=== PATIENT | female | born 1995 | race African-American/Black ===

== ENCOUNTER 2022-02-22 22:10 | Inpatient (IN) | payer OTHER ==
[2022-02-22] MEDS ORDERED: SODIUM CHLORIDE 0.9% 1,000 ML IV STA (22:35)
[2022-02-22] MEDS ORDERED: ALBUTEROL NEBULIZED 2.5 MG/3 ML INHALATION STA (22:35)
[2022-02-22] MEDS ORDERED: IPRATROPIUM-ALBUTEROL 3 ML NEB INHALATION STA (22:37)
[2022-02-22] MEDS ORDERED: ACETAMINOPHEN TAB 500 MG TAB PO STA (23:06)
--- NOTE | 2022-02-22 23:08 | ED ---
SOB HPI - General Chief Complaint: Shortness of Breath Stated Complaint: asthma Time Seen by Provider: 02/22/22 22:20 Source: patient, RN notes reviewed Mode of arrival: wheelchair Limitations: no limitations - History of Present Illness Initial Comments: This is a pleasant 26-year-old female with a history of asthma. She presents to the emergency department complaining of shortness of breath, cough, runny nose which is progressive over the past 3 days. Patient also has had a fever. Patient denying any chest pain. She denies any abdominal pain. Denies chance of . Not exposed to anybody with COVID-19. No other ill individuals in the family. No headache, no fever or chills, no changes in vision or hearing, no sore throat or difficulty with speech, no neck pain, no chest pain, no abdominal pain, no nausea or vomiting, no changes in urination or bowel movements, no numbness or tingling, no extremity pain, no skin rashes or lesions. Past medical, surgical, social, and family history reviewed. Patient states she has had a clear runny nose. MD Complaint: shortness of breath - Related Data Allergies Allergy/AdvReac Type Severity Reaction Status Date / Time No Known Allergies Allergy Verified 02/22/22 22:15 Review of Systems ROS Statement: Those systems with pertinent positive or pertinent negative responses have been documented in the HPI. ROS Other: All systems not noted in ROS Statement are negative. Past Medical History Past Medical History: Asthma History of Any Multi-Drug Resistant Organisms: None Reported Additional Past Surgical History / Comment(s): Tumors removed from uterus Past Psychological History: No Psychological Hx Reported Smoking Status: Never smoker Past Alcohol Use History: None Reported Past Drug Use History: None Reported General Exam - General Exam Comments Initial Comments: Thin but healthy-appearing 26-year-old in moderate distress due to difficulty breathing. Vital signs noted. Limitations: no limitations General appearance: alert, in distress, other (Capillary refill less than 2 seconds. No modeling. Moist mucous membranes) Head exam: Present: atraumatic, normocephalic, normal inspection Eye exam: Present: normal appearance, PERRL, EOMI. Absent: scleral icterus, conjunctival injection, periorbital swelling ENT exam: Present: normal exam, normal oropharynx, mucous membranes moist, normal external ear exam, other (Mild clear nasal discharge). Absent: mucous membranes dry Neck exam: Present: normal inspection, full ROM. Absent: tenderness, meningismus, lymphadenopathy Respiratory exam: Present: respiratory distress, wheezes, accessory muscle use, decreased breath sounds, prolonged expiratory. Absent: rales, rhonchi, stridor, chest wall tenderness Cardiovascular Exam: Present: normal rhythm, tachycardia, normal heart sounds. Absent: systolic murmur, diastolic murmur, rubs, gallop, clicks GI/Abdominal exam: Present: soft, normal bowel sounds. Absent: distended, tenderness, guarding, rebound, rigid Extremities exam: Present: normal inspection, full ROM, normal capillary refill. Absent: tenderness, pedal edema, joint swelling, calf tenderness Back exam: Present: normal inspection Neurological exam: Present: alert, oriented X3, CN II-XII intact, motor sensory deficit Psychiatric exam: Present: normal affect, normal mood Skin exam: Present: warm, dry, intact, normal color. Absent: rash Course Vital Signs 02/22/22 02/22/22 02/22/22 22:12 22:35 23:44 Temperature 100.7 F H Pulse Rate 138 H 124 H 108 H Respiratory 32 H Rate Blood Pressure 145/91 O2 Sat by Pulse 92 L Oximetry 02/22/22 02/23/22 02/23/22 23:55 00:09 00:25 Temperature 98.5 F Pulse Rate 113 H 137 H 125 H Respiratory Rate Blood Pressure O2 Sat by Pulse Oximetry 02/23/22 01:06 Temperature Pulse Rate 129 H Respiratory 30 H Rate Blood Pressure 129/92 O2 Sat by Pulse 97 Oximetry - Reevaluation(s) Reevaluation #1: 02/23/22 00:14 Patient reevaluated and relieves not improved at all. I did add on another DuoNeb treatment, terbutaline, and a magnesium infusion. We'll plan for admission and reevaluation. We'll consider BiPAP. She currently breathing abo ut 28/m with IV wheezes throughout. Reevaluation #2: 02/23/22 01:14 Patient reevaluated and seems to be somewhat improved after an additional DuoNeb treatment, magnesium, and terbutaline. Patient still has IV wheezes and is still requiring nasal oxygen to maintain a saturation in the 90s. COVID-19 testing was negative. Reevaluation #3: 02/23/22 01:33 ABG on 24% FiO2 after several breathing treatments reveals compensated respiratory alkalosis with hypoxemia pO2 of 75.6., PH 7.39, pCO2 26.7, bicarbonate 16.2, base excess -8.7 - Consultations Consultation #1: Attestation we'll place a call for the admitting physician. Consultation #2: [facility] Patient admitted to the group and pulmonology reconsult with. Medical Decision Making - Lab Data Result diagrams: 02/22/22 23:03 02/22/22 23:03 Lab Results 02/22/22 02/22/22 02/22/22 Range/Units 23:03 23:03 23:03 WBC 10.0 (3.8-10.6) k/uL RBC 4.63 (3.80-5.40) m/uL Hgb 14.0 (11.4-16.0) gm/dL Hct 44.0 (34.0-46.0) % MCV 94.9 (80.0-100.0) fL MCH 30.2 (25.0-35.0) pg MCHC 31.8 (31.0-37.0) g/dL RDW 12.5 (11.5-15.5) % Plt Count 291 (150-450) k/uL MPV 9.6 Neutrophils % 82 % Lymphocytes % 12 % Monocytes % 3 % Eosinophils % 1 % Basophils % 1 % Neutrophils # 8.2 H (1.3-7.7) k/uL Lymphocytes # 1.2 (1.0-4.8) k/uL Monocytes # 0.3 (0-1.0) k/uL Eosinophils # 0.1 (0-0.7) k/uL Basophils # 0.1 (0-0.2) k/uL PT 10.8 (9.0-12.0) sec INR 1.0 (<1.2) D-Dimer 0.31 (<0.60) mg/L FEU Sample Site ABG pH (7.35-7.45) ABG pCO2 (35-45) mmHg ABG pO2 (83-108) mmHg ABG HCO3 (21-25) mmol/L ABG Total CO2 (19-24) mmol/L ABG O2 Saturation (94-97) % ABG Base Excess mmol/L ABG Hematocrit (34.0-46.0) % Michael Test Hemoglobin (11.4-16.0) gm/dL FiO2 % Sodium 139 (137-145) mmol/L Potassium 3.7 (3.5-5.1) mmol/L Chloride 104 (98-107) mmol/L Carbon Dioxide 17 L (22-30) mmol/L Anion Gap 18 mmol/L BUN 7 (7-17) mg/dL Creatinine 0.61 (0.52-1.04) mg/dL Est GFR (CKD-EPI)AfAm >90 (>60 ml/min/1.73 sqM) Est GFR (CKD-EPI)NonAf >90 (>60 ml/min/1.73 sqM) Glucose 89 (74-99) mg/dL Plasma Lactic Acid Miky (0.7-2.0) mmol/L Calcium 9.7 (8.4-10.2) mg/dL Magnesium 1.8 (1.6-2.3) mg/dL Total Bilirubin 0.5 (0.2-1.3) mg/dL AST 28 (14-36) U/L ALT 14 (4-34) U/L Alkaline Phosphatase 84 (38-126) U/L Troponin I (0.000-0.034) ng/mL NT-Pro-B Natriuret Pep pg/mL Total Protein 8.2 (6.3-8.2) g/dL Albumin 4.9 (3.5-5.0) g/dL Coronavirus (PCR) (Not Detectd) 02/22/22 02/22/22 02/22/22 Range/Units 23:03 23:03 23:03 WBC (3.8-10.6) k/uL RBC (3.80-5.40) m/uL Hgb (11.4-16.0) gm/dL Hct (34.0-46.0) % MCV (80.0-100.0) fL MCH (25.0-35.0) pg MCHC (31.0-37.0) g/dL RDW (11.5-15.5) % Plt Count (150-450) k/uL MPV Neutrophils % % Lymphocytes % % Monocytes % % Eosinophils % % Basophils % % Neutrophils # (1.3-7.7) k/uL Lymphocytes # (1.0-4.8) k/uL Monocytes # (0-1.0) k/uL Eosinophils # (0-0.7) k/uL Basophils # (0-0.2) k/uL PT (9.0-12.0) sec INR (<1.2) D-Dimer (<0.60) mg/L FEU Sample Site ABG pH (7.35-7.45) ABG pCO2 (35-45) mmHg ABG pO2 (83-108) mmHg ABG HCO3 (21-25) mmol/L ABG Total CO2 (19-24) mmol/L ABG O2 Saturation (94-97) % ABG Base Excess mmol/L ABG Hematocrit (34.0-46.0) % Michael Test Hemoglobin (11.4-16.0) gm/dL FiO2 % Sodium (137-145) mmol/L Potassium (3.5-5.1) mmol/L Chloride (98-107) mmol/L Carbon Dioxide (22-30) mmol/L Anion Gap mmol/L BUN (7-17) mg/dL Creatinine (0.52-1.04) mg/dL Est GFR (CKD-EPI)AfAm (>60 ml/min/1.73 sqM) Est GFR (CKD-EPI)NonAf (>60 ml/min/1.73 sqM) Glucose (74-99) mg/dL Plasma Lactic Acid Miky 1.6 (0.7-2.0) mmol/L Calcium (8.4-10.2) mg/dL Magnesium (1.6-2.3) mg/dL Total Bilirubin (0.2-1.3) mg/dL AST (14-36) U/L ALT (4-34) U/L Alkaline Phosphatase (38-126) U/L Troponin I <0.012 (0.000-0.034) ng/mL NT-Pro-B Natriuret Pep 78 pg/mL Total Protein (6.3-8.2) g/dL Albumin (3.5-5.0) g/dL Coronavirus (PCR) (Not Detectd) 02/22/22 02/23/22 Range/Units 23:03 01:26 WBC (3.8-10.6) k/uL RBC (3.80-5.40) m/uL Hgb (11.4-16.0) gm/dL Hct (34.0-46.0) % MCV (80.0-100.0) fL MCH (25.0-35.0) pg MCHC (31.0-37.0) g/dL RDW (11.5-15.5) % Plt Count (150-450) k/uL MPV Neutrophils % % Lymphocytes % % Monocytes % % Eosinophils % % Basophils % % Neutrophils # (1.3-7.7) k/uL Lymphocytes # (1.0-4.8) k/uL Monocytes # (0-1.0) k/uL Eosinophils # (0-0.7) k/uL Basophils # (0-0.2) k/uL PT (9.0-12.0) sec INR (<1.2) D-Dimer (<0.60) mg/L FEU Sample Site Left Brachial ABG pH 7.39 (7.35-7.45) ABG pCO2 27 L (35-45) mmHg ABG pO2 76 L (83-108) mmHg ABG HCO3 16 L (21-25) mmol/L ABG Total CO2 17 L (19-24) mmol/L ABG O2 Saturation 95.8 (94-97) % ABG Base Excess -8.7 mmol/L ABG Hematocrit 41 (34.0-46.0) % Michael Test Yes Hemoglobin 13.3 (11.4-16.0) gm/dL FiO2 24 % Sodium (137-145) mmol/L Potassium (3.5-5.1) mmol/L Chloride (98-107) mmol/L Carbon Dioxide (22-30) mmol/L Anion Gap mmol/L BUN (7-17) mg/dL Creatinine (0.52-1.04) mg/dL Est GFR (CKD-EPI)AfAm (>60 ml/min/1.73 sqM) Est GFR (CKD-EPI)NonAf (>60 ml/min/1.73 sqM) Glucose (74-99) mg/dL Plasma Lactic Acid Miky (0.7-2.0) mmol/L Calcium (8.4-10.2) mg/dL Magnesium (1.6-2.3) mg/dL Total Bilirubin (0.2-1.3) mg/dL AST (14-36) U/L ALT (4-34) U/L Alkaline Phosphatase (38-126) U/L Troponin I (0.000-0.034) ng/mL NT-Pro-B Natriuret Pep pg/mL Total Protein (6.3-8.2) g/dL Albumin (3.5-5.0) g/dL Coronavirus (PCR) Not Detected (Not Detectd) - EKG Data EKG Comments: EKG done at 2224 and regular ED attending physician reveals sinus tachycardia with short NJ interval. Ventricular rate of 121. NJ interval 104 ms. Remainder the intervals are normal. Indeterminate axis with isoelectric lead 1. No evidence of ST elevation or ST depression. No acute respiratory otherwise. Minimal artifact. No comparison study Critical Care Time Critical Care Time: Yes Total Critical Care Time: 30 Critical Care Time: Multiple re-evaluations, acute asthma exacerbation with respiratory distress and hypoxemia into the mid 80s. Patient requires nasal oxygen to maintain a normal oxygen saturation. Reevaluation of patient. Multiple interventions. Evaluation of patient's response to treatment. Disposition Clinical Impression: Asthma exacerbation, Viral upper respiratory infection, Respiratory distress, Hypoxemia Disposition: ADMITTED IP TO THIS HOSP Condition: Poor Is patient prescribed a controlled substance at d/c from ED?: No Referrals: None,Stated [Primary Care Provider] - 1-2 days Decision to Admit Reason: Admit from EC Decision Time: 00:16
--- NOTE | 2022-02-22 23:26 | XR ---
EXAMINATION TYPE: XR chest 1V portable DATE OF EXAM: 02/22/2022 COMPARISON: NONE HISTORY: Cough TECHNIQUE: Single view FINDINGS: Heart and mediastinum are normal. Lungs are clear. Diaphragm is normal. Bony thorax is inta ct. IMPRESSION: Normal chest.
[2022-02-22 23:32] LABS: Basophils # (A) 0.1 k/uL (0-0.2); Basophils % (A) 1 %; Eosinophils # (A) 0.1 k/uL (0-0.7); Eosinophils % (A) 1 %; Lymphocytes # (A) 1.2 k/uL (1.0-4.8); Lymphocytes % (A) 12 %; MCH 30.2 pg (25.0-35.0); MCHC 31.8 g/dL (31.0-37.0); MCV 94.9 fL (80.0-100.0); Mean Platelet Volume 9.6; Monocytes # (A) 0.3 k/uL (0-1.0); Monocytes % (A) 3 %; Neutrophils # (A) 8.2 k/uL (1.3-7.7); Neutrophils % (A) 82 %; Platelet Count 291 k/uL (150-450); RBC 4.63 m/uL (3.80-5.40); RDW 12.5 % (11.5-15.5)
[2022-02-22 23:51] LABS: ALT 14 U/L (4-34); AST 28 U/L (14-36); African American GFR (CKD) >90 (>60 ml/min/1.73 sqM); Albumin 4.9 g/dL (3.5-5.0); Alkaline Phosphatase 84 U/L (38-126); Anion Gap 18 mmol/L; Blood Urea Nitrogen 7 mg/dL (7-17); Calcium 9.7 mg/dL (8.4-10.2); Carbon Dioxide 17 mmol/L (22-30); Chloride 104 mmol/L (98-107); Glucose 89 mg/dL (74-99); Magnesium 1.8 mg/dL (1.6-2.3); Non-African American GFR(CKD) >90 (>60 ml/min/1.73 sqM); Potassium 3.7 mmol/L (3.5-5.1); Sodium 139 mmol/L (137-145); Total Bilirubin 0.5 mg/dL (0.2-1.3); Total Protein 8.2 g/dL (6.3-8.2)
[2022-02-23] MEDS ORDERED: MAGNESIUM SULFATE-D5W PMX 1 GM in DEXTROSE/WATER 1 100ML.BAG IVPB ONE (00:09)
[2022-02-23] MEDS ORDERED: TERBUTALINE 1 MG/ML VIAL SQ STA (00:09)
[2022-02-23] MEDS ORDERED: IPRATROPIUM-ALBUTEROL 3 ML NEB INHALATION STA (00:12)
[2022-02-23 00:14] LABS: Prothrombin Time 10.8 sec (9.0-12.0)
[2022-02-23] MEDS ORDERED: ACETAMINOPHEN TAB 325 MG TAB PO PRN (01:20)
[2022-02-23] MEDS ORDERED: NALOXONE 0.4 MG/ML 1 ML VIAL IVP PRN (01:20)
[2022-02-23] MEDS ORDERED: ALBUTEROL NEBULIZED 2.5 MG/3 ML INHALATION PRN (01:24)
[2022-02-23] MEDS ORDERED: NALOXONE 0.4 MG/ML 1 ML VIAL IV PRN (01:25)
[2022-02-23] MEDS ORDERED: ONDANSETRON 4 MG/2 ML VIAL IVP PRN (01:25)
[2022-02-23 01:28] LABS: ABG Base Excess -8.7 mmol/L; ABG HCO3 16 mmol/L (21-25); ABG Hematocrit 41 % (34.0-46.0); ABG Oxygen Saturation 95.8 % (94-97); ABG PCO2 27 mmHg (35-45); ABG PH 7.39 (7.35-7.45); ABG PO2 76 mmHg (83-108); ABG TCO2 17 mmol/L (19-24); Allen Test Performed? Yes
[2022-02-23] MEDS ORDERED: ALBUTEROL NEB (CONC) 2.5 MG/0.5 ML INHALATION STA (01:38)
[2022-02-23] MEDS: IPRATROPIUM-ALBUTEROL 3 ML NEB INHALATION SCH ×6 (03:46→23:56)
[2022-02-23] MEDS: guaiFENesin-DM 100-10MG/5ML 10 ML CUP PO PRN ×3 (05:40→18:48)
[2022-02-23 06:05] LABS: Appearance,Urine Clear (Clear); Bacteria,Urine Rare /hpf; Bilirubin,Urine Negative (Negative); Blood,Urine Moderate (Negative); Color,Urine Light Yellow; Glucose,Urine (UA) Negative (Negative); Ketones,Urine 2+ (Negative); Leukocyte Esterase,Urine Negative (Negative); Mucus,Urine Occasional /hpf; Nitrite,Urine Negative (Negative); Protein,Urine Negative (Negative); RBC,Urine <1 /hpf (0-5); Squamous Epithelial Cell,Urine <1 /hpf (0-4); Urobilinogen,Urine <2.0 mg/dL (<2.0); WBC,Urine 1 /hpf (0-5)
[2022-02-23] MEDS ORDERED: methylPREDNISolone SOD SUCCI 125 MG/2 ML VIAL IV SCH (08:00)
[2022-02-23] MEDS: FLUTICASONE 220 MCG INHALER INHALATION SCH ×2 (08:07→20:15)
[2022-02-23] MEDS: HEPARIN SODIUM,PORCINE/PF 5,000 UNIT/0.5 ML SYRINGE SQ SCH ×2 (09:40→18:47)
[2022-02-23] MEDS ORDERED: AZITHROMYCIN 500 MG TAB PO STA (09:55)
[2022-02-23] MEDS ORDERED: PROMETHAZINE 25 MG TAB PO PRN (09:56)
--- NOTE | 2022-02-23 09:57 | P.HPIM ---
History of Present Illness This is a pleasant 26 years old female with past medical history of asthma Patient presents because of dyspnea and coughing over 4-5 days, as per patient it was started as sore throat and runny nose, then developed into dyspnea, also she is getting support her parents report called at times. This a day she vomited more than 3 times and there was no blood in it. Also she is coughing some little brown phlegm. No chest pain, no diarrhea or vomiting or abdominal pain, actually she is constipated. No urinary symptoms like dysuria or urgency. No headache or dizziness, no weakness or numbness. Denies smoking, alcohol or drugs Patient states that this is a 10-12 time admitted to the hospital for similar complaint over the last year, usually goes to [facility] in [place] or [facility] about she moved recently with her boyfriend. Currently they have 2 pets 1 lungs to her and wants to her boyfriend. HCG in the serum is not detected Patient was counseled to avoid pets if possible at that may contribute to asthma exacerbation She is saturating 99% on 2 L oxygen nasal cannula, she is tachypneic and tachycardic heart rate 111-130 and respiratory rate 24. Patient is low-grade fever 100.7 showing unremarkable CBC, INR, BMP and liver enzymes are troponin. Urine analysis showing 2+ ketones. Coronavirus, influenza virus are negative. Chest x-ray: In the emergency room patient was started on steroids and IV fluid Review of Systems Review of systems CONSTITUTIONAL: No fever, no malaise, no fatigue. HEENT: No recent visual problems or hearing problems. Denied any sore throat. CARDIOVASCULAR: No orthopnea, PND, no palpitations, no syncope. PULMONARY: No chest wall tenderness, no hemoptysis. GASTROINTESTINAL: No diarrhea, no nausea, no vomiting, no abdominal pain. Norm oactive bowel sounds. NEUROLOGICAL: No headaches, no weakness, no numbness. HEMATOLOGICAL: Denies any bleeding or petechiae. GENITOURINARY: Denies any burning micturition, frequency, or urgency. MUSCULOSKELETAL/RHEUMATOLOGICAL: Denies any joint pain, swelling, or any muscle pain. ENDOCRINE: Denies any polyuria or polydipsia. Past Medical History Past Medical History: Asthma History of Any Multi-Drug Resistant Organisms: None Reported Additional Past Surgical History / Comment(s): Tumors removed from uterus Past Psychological History: No Psychological Hx Reported Smoking Status: Never smoker Past Alcohol Use History: None Reported Past Drug Use History: None Reported Medications and Allergies Home Medications Medication Instructions Recorded Confirmed Type No Known Home Medications 02/23/22 02/23/22 History Allergies Allergy/AdvReac Type Severity Reaction Status Date / Time No Known Allergies Allergy Verified 02/23/22 08:20 Physical Exam Vitals: Vital Signs Temp Pulse Pulse Resp BP BP Pulse Ox 02/23/22 04:01 111 H 02/23/22 03:49 130 H 02/23/22 03:20 99 F 122 H 24 119/83 99 02/23/22 02:22 125 H 02/23/22 02:10 140 H 02/23/22 01:58 132 H 02/23/22 01:06 129 H 30 H 129/92 97 02/23/22 00:25 98.5 F 125 H 02/23/22 00:09 137 H 02/22/22 23:55 113 H 02/22/22 23:44 108 H 02/22/22 22:35 124 H 02/22/22 22:12 100.7 F H 138 H 32 H 145/91 92 L Intake and Output 02/22/22 02/22/22 02/23/22 14:59 22:59 06:59 Other: Voiding Method Toilet # Voids 1 Weight 58.967 kg 58.967 kg GENERAL: The patient is alert and oriented x3, not in any acute distress. Well developed, well nourished. HEENT: Pupils are round and equally reacting to light. EOMI. No scleral icterus. No conjunctival pallor. Normocephalic, atraumatic. No pharyngeal erythema. No thyromegaly. CARDIOVASCULAR: S1 and S2 present. No murmurs, rubs, or gallops. -PULMONARY: Chest is clear to auscultation, no crackles. . Bilateral scattered wheezing ABDOMEN: Soft, nontender, nondistended, normoactive bowel sounds. No palpable organomegaly. MUSCULOSKELETAL: No joint swelling or deformity. EXTREMITIES: No cyanosis, clubbing, or pedal edema. NEUROLOGICAL: Gross neurological examination did not reveal any focal deficits. SKIN: No rashes. no petechiae. Results CBC & Chem 7: 02/22/22 23:03 02/22/22 23:03 Labs: Abnormal Lab Results - Last 24 Hours (Table) 02/22/22 02/22/22 02/23/22 Range/Units 23:03 23:03 01:26 Neutrophils # 8.2 H (1.3-7.7) k/uL ABG pCO2 27 L (35-45) mmHg ABG pO2 76 L (83-108) mmHg ABG HCO3 16 L (21-25) mmol/L ABG Total CO2 17 L (19-24) mmol/L Carbon Dioxide 17 L (22-30) mmol/L Assessment and Plan Assessment: Acute asthma exacerbation Acute tracheobronchitis Recurrent vomiting, most likely secondary to above with rotation Plan: This is a pleasant 26 years old female who presents with dyspnea fever Continue with IV Solu-Medrol Continue with a breathing treatment and oxygen as needed. Start the patient on Zithromax 5 days Pulmonary consult follow-up Labs and medication were reviewed.. Continue same treatment. Continue with symptomatic treatment. Resume home medication. Monitor lytes and vitals. DVT and GI prophylaxis. Further recommendations as per clinical course of the patient DVT prophylaxis: Subcutaneous heparin GI Prophylaxis: Pepcid
[2022-02-23] MEDS: methylPREDNISolone SOD SUCCI 125 MG/2 ML VIAL IV SCH ×2 (12:38→18:48)
--- NOTE | 2022-02-23 12:41 | P.CNPUL ---
History of Present Illness Consult date: 02/23/22 Reason for consult: dyspnea History of present illness: 26-year-old female patient, known history of childhood asthma, maintain on short-acting albuterol rescue inhaler, presented to the hospital because of an acute asthma attack, increased chest that is wheezing and shortness of breath. The patient was progressively getting worse and she end up in the hospital. Her last hospitalization was approximately year ago at [facility] in [facility]. The patient has no significant environmental ALLERGIES. She has 2 dogs and one cat in the house. She has her [id number] who also smokes in the house. The patient herself does not smoke. She's been exposed to secondhand cigarette smoke. No history of breathing. No history of marijuana use. The patient was infected with COVID 19 back in May 2021 and she recovered. She was also partially vaccinated for the COVID 19 virus The patient reports no aspiration. No recurrent bronchitis or pneumonia. Her labs showed a white cell count of 10 with a hemoglobin of 14, normal coagulation profile. Blood gases on 2 L of oxygen by nasal cannula showed a pH of 7.39 with a pCO2 of 27 and pO2 76. Electrolytes showed a component of anion gap metabolic acidosis with a gap of 18 and a serum bicarbonate was 17. Troponins were negative. UA was negative. Coreg 19 by PCR was negative. Influenza screen was negative. Chest x-ray shows no acute abnormalities other than hyperinflation. No frequent steroid use. No other maintenance inhalation therapy for asthma over the years. Review of Systems Constitutional: Denies chills, Denies fever Eyes: denies as per HPI, denies blurred vision, denies bulging eye, denies decreased vision, denies diplopia, denies discharge, denies dry eye, denies irritation, denies itching, denies pain, denies photophobia, denies loss of peripheral vision, denies loss of vision, denies tunnel vision/blind spots Ears: deny: decreased hearing, ear discharge, earache, tinnitus Ears, nose, mouth and throat: Reports as per HPI Breasts: absent: as per HPI, change in shape, gynecomastia, masses, nipple discharge, pain, skin changes, swelling Cardiovascular: Reports decreased exercise tolerance, Reports dyspnea on exertion Respiratory: Reports cough, Reports dyspnea, Reports wheezing Gastrointestinal: Reports as per HPI Genitourinary: Reports as per HPI Menstruation: Reports as per HPI Musculoskeletal: Reports as per HPI Musculoskeletal: absent: ankle pain, ankle stiffness, ankle swelling Integumentary: Reports as per HPI Neurological: Reports as per HPI Psychiatric: Reports as per HPI Endocrine: Reports as per HPI Hematologic/Lymphatic: Reports as per HPI Allergic/Immunologic: Reports as per HPI Past Medical History Past Medical History: Asthma Additional Past Medical History / Comment(s): Childhood asthma. Previous admission for asthma exac. Mar 2021, [facility]. COVID May 2021, judie rtially vaccinated (moderna x1). 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 Past Psychological History: No Psychological Hx Reported Smoking Status: Never smoker Past Alcohol Use History: None Reported Past Drug Use History: None Reported Medications and Allergies Home Medications Medication Instructions Recorded Confirmed Type No Known Home Medications 02/23/22 02/23/22 History Allergies Allergy/AdvReac Type Severity Reaction Status Date / Time No Known Allergies Allergy Verified 02/23/22 08:20 Physical Exam Vitals: Vital Signs Temp Pulse Pulse Resp BP BP Pulse Ox 02/23/22 09:48 101 H 02/23/22 08:08 120 H 02/23/22 08:00 120 H 18 02/23/22 07:58 99 02/23/22 07:54 107 H 02/23/22 07:38 98.5 F 103 H 18 115/77 98 02/23/22 04:30 99.4 F 113 H 23 114/79 98 02/23/22 04:01 111 H 02/23/22 03:49 130 H 02/23/22 03:20 99 F 122 H 24 119/83 99 02/23/22 02:22 125 H 02/23/22 02:10 140 H 02/23/22 01:58 132 H 02/23/22 01:06 129 H 30 H 129/92 97 02/23/22 00:25 98.5 F 125 H 02/23/22 00:09 137 H 02/22/22 23:55 113 H 02/22/22 23:44 108 H 02/22/22 22:35 124 H 02/22/22 22:12 100.7 F H 138 H 32 H 145/91 92 L Intake and Output 09/20/22 09/21/22 09/21/22 22:59 06:59 14:59 Other: Voiding Method Toilet Toilet # Voids 1 Weight 58.967 kg 58.967 kg Gen. appearance the patient is calm and comfortable and she is able to complete full sentences. She is or occasionally having coughing fits. Head exam was generally normal. There was no scleral icterus or corneal arcus. Mucous membranes were moist. Neck was supple and without jugular venous distension, thyromegaly, or carotid bruits. Carotids were easily palpable bilaterally. There was no adenopathy. Lungs sounds are diminished and the patient is diffuse expiratory wheezes throughout the lung his bilaterally Cardiac exam revealed the PMI to be normally situated and sized. The rhythm was regular and no extrasystoles were noted during several minutes of auscultation. The first and second heart sounds were normal and physiologic splitting of the second heart sound was noted. There were no murmurs, rubs, clicks, or gallops. Abdominal exam revealed normal bowel sounds. The abdomen was soft, non-tender, and without masses, organomegaly, or appreciable enlargement of the abdominal aorta. Examination of the extremities revealed easily palpable radial, femoral and pedal pulses. There was no cyanosis, clubbing or edema. Examination of the skin revealed no evidence of significant rashes, suspicious appearing nevi or other concerning lesions. Neurologically, the patient is awake and alert and the patient does not have any focal neurological deficit. Cranial nerves are essentially intact. Results - Laboratory Findings CBC and BMP: 02/22/22 23:03 02/22/22 23:03 ABG ABG pH 7.39 (7.35-7.45) 02/23/22 01:26 ABG pCO2 27 mmHg (35-45) L 02/23/22 01:26 ABG pO2 76 mmHg (83-108) L 02/23/22 01:26 ABG O2 Saturation 95.8 % (94-97) 02/23/22 01:26 PT/INR, D-dimer PT 10.8 sec (9.0-12.0) 02/22/22 23:03 INR 1.0 (<1.2) 02/22/22 23:03 D-Dimer 0.31 mg/L FEU (<0.60) 02/22/22 23:03 Abnormal lab findings: Abnormal Labs 02/22/22 02/22/22 02/23/22 23:03 23:03 01:26 Neutrophils # 8.2 H ABG pCO2 27 L ABG pO2 76 L ABG HCO3 16 L ABG Total CO2 17 L Carbon Dioxide 17 L Urine Ketones Urine Blood Urine Bacteria Urine Mucus 02/23/22 05:49 Neutrophils # ABG pCO2 ABG pO2 ABG HCO3 ABG Total CO2 Carbon Dioxide Urine Ketones 2+ H Urine Blood Moderate H Urine Bacteria Rare H Urine Mucus Occasional H - Diagnostic Findings Chest x-ray: image reviewed Assessment and Plan Plan: Acute exacerbation of chronic asthma, secondary shortness of breath chest tightness and wheeze. Blood gas shows acute respiratory alkalosis Anion gap metabolic acidosis, probably related to a mild component of lactic acidosis due to increased shortness of breath and increased work of breathing History of childhood bronchial asthma, likely nonallergic in nature COVID 19 infection May 2021 Plan Continue current treatment of DuoNeb nebulized treatment [id number] IV Solu Medrol 60 mg every 6 hours Continue empiric antibiotic coverage with Zithromax to 50 mg by mouth daily Outpatient workup for asthma phenotype/endotype in addition to morbid function tests All patient maintenance inhaled corticosteroids and this will be established the time of discharge We'll continue to follow
[2022-02-23] MEDS: FAMOTIDINE 20 MG/2 ML VIAL IV SCH (21:56)
[2022-02-24] MEDS: HEPARIN SODIUM,PORCINE/PF 5,000 UNIT/0.5 ML SYRINGE SQ SCH ×2 (00:28→09:33)
[2022-02-24] MEDS: methylPREDNISolone SOD SUCCI 125 MG/2 ML VIAL IV SCH ×2 (00:29→05:30)
[2022-02-24] MEDS: IPRATROPIUM-ALBUTEROL 3 ML NEB INHALATION SCH ×3 (04:02→11:18)
[2022-02-24] MEDS: FLUTICASONE 220 MCG INHALER INHALATION SCH (07:24)
[2022-02-24] MEDS ORDERED: AZITHROMYCIN 250 MG TAB PO SCH (09:00)
[2022-02-24 09:17] LABS: Basophils % (A) 0 %; Eosinophils % (A) 0 %; HCT 40.4 % (34.0-46.0); HGB 13.1 gm/dL (11.4-16.0); Lymphocytes # (A) 0.9 k/uL (1.0-4.8); Lymphocytes % (A) 7 %; MCH 30.9 pg (25.0-35.0); MCHC 32.3 g/dL (31.0-37.0); MCV 95.8 fL (80.0-100.0); Mean Platelet Volume 10.3; Monocytes # (A) 0.3 k/uL (0-1.0); Monocytes % (A) 3 %; Neutrophils # (A) 11.5 k/uL (1.3-7.7); Neutrophils % (A) 90 %; Platelet Count 309 k/uL (150-450); RBC 4.22 m/uL (3.80-5.40); RDW 12.7 % (11.5-15.5); WBC 12.8 k/uL (3.8-10.6)
[2022-02-24 09:26] LABS: African American GFR (CKD) >90 (>60 ml/min/1.73 sqM); Anion Gap 13 mmol/L; Blood Urea Nitrogen 9 mg/dL (7-17); Calcium 9.6 mg/dL (8.4-10.2); Carbon Dioxide 22 mmol/L (22-30); Chloride 104 mmol/L (98-107); Glucose 135 mg/dL (74-99); Non-African American GFR(CKD) >90 (>60 ml/min/1.73 sqM); Potassium 3.9 mmol/L (3.5-5.1); Sodium 139 mmol/L (137-145)
[2022-02-24] MEDS: FAMOTIDINE 20 MG/2 ML VIAL IV SCH (09:33)
[2022-02-24 12:10] VITALS: BP 120/72; PULSE 109; RESP 18; TEMP 98.7
--- NOTE | 2022-02-24 12:17 | P.PN ---
Subjective This is a pleasant 26 years old female with past medical history of asthma Patient presents because of dyspnea and coughing over 4-5 days, as per patient it was started as sore throat and runny nose, then developed into dyspnea, also she is getting support her parents report called at times. This a day she vomited more than 3 times and there was no blood in it. Also she is coughing some little brown phlegm. No chest pain, no diarrhea or vomiting or abdominal pain, actually she is constipated. No urinary symptoms like dysuria or urgency. No headache or dizziness, no weakness or numbness. Denies smoking, alcohol or drugs Patient states that this is a 10-12 time admitted to the hospital for similar complaint over the last year, usually goes to [facility] in [place] or [facility] about she moved recently with her boyfriend. Currently they have 2 pets 1 lungs to her and wants to her boyfriend. HCG in the serum is not detected Patient was counseled to avoid pets if possible at that may contribute to asthma exacerbation She is saturating 99% on 2 L oxygen nasal cannula, she is tachypneic and tachycardic heart rate 111-130 and respiratory rate 24. Patient is low-grade fever 100.7 showing unremarkable CBC, INR, BMP and liver enzymes are troponin. Urine analysis showing 2+ ketones. Coronavirus, influenza virus are negative. Chest x-ray: In the emergency room patient was started on steroids and IV fluid 02-24-22 Patient breathing and wheezing are improving today while she is kept on IV Solu- Medrol and Zithromax. We'll continue with same treatment. She is slightly tachycardic better than yesterday, she is afebrile. Continue also with the Zithromax antibiotic possible discharge in 24-48 hours if she keeps improvement Objective - Vital Signs Vital signs: Vital Signs Temp 98.7 F 02/24/22 08:00 Pulse 108 H 02/24/22 11:29 Resp 18 02/24/22 08:00 BP 120/72 02/24/22 08:00 Pulse Ox 96 02/24/22 08:00 FiO2 Intake & Output 02/23/22 02/24/22 02/24/22 18:59 06:59 18:59 Intake Total 440 Balance 440 Intake: Oral 440 Other: Voiding Method Toilet Toilet Toilet # Voids 1 - Exam GENERAL: The patient is alert and oriented x3, not in any acute distress. Well developed, well nourished. HEENT: Pupils are round and equally reacting to light. EOMI. No scleral icterus. No conjunctival pallor. Normocephalic, atraumatic. No pharyngeal erythema. No thyromegaly. CARDIOVASCULAR: S1 and S2 present. No murmurs, rubs, or gallops. -PULMONARY: Chest is clear to auscultation, no crackles. less wheezing ABDOMEN: Soft, nontender, nondistended, normoactive bowel sounds. No palpable organomegaly. MUSCULOSKELETAL: No joint swelling or deformity. EXTREMITIES: No cyanosis, clubbing, or pedal edema. NEUROLOGICAL: Gross neurological examination did not reveal any focal deficits. SKIN: No rashes. no petechiae. - Labs CBC & Chem 7: 02/24/22 07:31 02/24/22 07:31 Labs: Abnormal Lab Results - Last 24 Hours (Table) 02/23/22 02/24/22 02/24/22 Range/Units 07:56 07:31 07:31 WBC 12.8 H (3.8-10.6) k/uL Neutrophils # 11.5 H (1.3-7.7) k/uL Lymphocytes # 0.9 L (1.0-4.8) k/uL Glucose 135 H (74-99) mg/dL Procalcitonin 0.13 H (0.02-0.09) ng/mL Microbiology - Last 24 Hours (Table) 02/22/22 22:40 Blood Culture - Preliminary Blood No Growth after 24 hours 02/22/22 22:58 Blood Culture - Preliminary Blood No Growth after 24 hours Assessment and Plan Assessment: Acute asthma exacerbation Acute tracheobronchitis Recurrent vomiting, most likely secondary to above with rotation Plan: This is a pleasant 26 years old female who presents with dyspnea fever Continue with IV Solu-Medrol Continue with a breathing treatment and oxygen as needed. Start the patient on Zithromax 5 days Pulmonary consult follow-up Labs and medication were reviewed.. Continue same treatment. Continue with symptomatic treatment. Resume home medication. Monitor lytes and vitals. DVT and GI prophylaxis. Further recommendations as per clinical course of the patient DVT prophylaxis: Subcutaneous heparin GI Prophylaxis: Pepcid
--- NOTE | 2022-02-24 12:52 | P.PN ---
Subjective Progress Note Date: 02/24/22 26-year-old female patient, known history of childhood asthma, maintain on shor t-acting albuterol rescue inhaler, presented to the hospital because of an acute asthma attack, increased chest that is wheezing and shortness of breath. The patient was progressively getting worse and she end up in the hospital. Her last hospitalization was approximately year ago at [facility] in [facility]. The patient has no significant environmental ALLERGIES. She has 2 dogs and one cat in the house. She has her thncga-cg-[id number] who also smokes in the house. The patient herself does not smoke. She's been exposed to secondhand cigarette smoke. No history of breathing. No history of marijuana use. The patient was infected with COVID 19 back in May 2021 and she recovered. She was also partially vaccinated for the COVID 19 virus The patient reports no aspiration. No recurrent bronchitis or pneumonia. Her labs showed a white cell count of 10 with a hemoglobin of 14, normal coagulation profile. Blood gases on 2 L of oxygen by nasal cannula showed a pH of 7.39 with a pCO2 of 27 and pO2 76. Electrolytes showed a component of anion gap metabolic acidosis with a gap of 18 and a serum bicarbonate was 17. Troponins were negative. UA was negative. Coreg 19 by PCR was negative. Influenza screen was negative. Chest x-ray shows no acute abnormalities other than hyperinflation. No frequent steroid use. No other maintenance inhalation therapy for asthma over the years. 02/24/2022, patient is feeling slightly better. Less short of breath and bron chospastic. She is still tachycardic and she gets more tachycardic with mobility. Nevertheless, she is able to maintain a saturation above 90%. She remains on Zithromax 250 mg by mouth daily. She is also on IV Solu-Medrol. She is on DuoNeb nebulized treatments around the clock. No chest pain. Her cough is still congested. No significant sputum production. No pleurisy. No hemoptysis. No blood work shows a white cell count 12.8 hemoglobin 13.1. BUN is at 9 with a creatinine of 0.68 and the serum bicarbonate was at 22 with a sodium level 139. Pro-calcitonin level is at 0.13. Objective - Vital Signs Vital signs: Vital Signs Temp 98.4 F 02/24/22 04:00 Pulse 124 H 02/24/22 07:39 Resp 20 02/24/22 04:00 BP 124/78 02/24/22 04:00 Pulse Ox 93 L 02/24/22 04:00 FiO2 Intake & Output 02/23/22 02/24/22 02/24/22 18:59 06:59 18:59 Intake Total 440 Balance 440 Intake: Oral 440 Other: Voiding Method Toilet Toilet # Voids 1 - Exam Gen. appearance the patient is calm and comfortable and she is able to complete full sentences. She is or occasionally having coughing fits. The patient is on room air oxygen Head exam was generally normal. There was no scleral icterus or corneal arcus. Mucous membranes were moist. Neck was supple and without jugular venous distension, thyromegaly, or carotid bruits. Carotids were easily palpable bilaterally. There was no adenopathy. Lungs sounds are diminished and the patient is diffuse expiratory wheezes throughout the lung his bilaterally , overall, less bronchospastic and wheezy compared to yesterday. Cardiac exam revealed the PMI to be normally situated and sized. The rhythm was regular and no extrasystoles were noted during several minutes of auscultation. The first and second heart sounds were normal and physiologic splitting of the second heart sound was noted. There were no murmurs, rubs, clicks, or gallops. Abdominal exam revealed normal bowel sounds. The abdomen was soft, non-tender, and without masses, organomegaly, or appreciable enlargement of the abdominal aorta. Examination of the extremities revealed easily palpable radial, femoral and pedal pulses. There was no cyanosis, clubbing or edema. Examination of the skin revealed no evidence of significant rashes, suspicious appearing nevi or other concerning lesions. Neurologically, the patient is awake and alert and the patient does not have any focal neurological deficit. Cranial nerves are essentially intact. - Labs CBC & Chem 7: 02/24/22 07:31 02/24/22 07:31 Labs: Abnormal Lab Results - Last 24 Hours (Table) 02/23/22 02/24/22 02/24/22 Range/Units 07:56 07:31 07:31 WBC 12.8 H (3.8-10.6) k/uL Neutrophils # 11.5 H (1.3-7.7) k/uL Lymphocytes # 0.9 L (1.0-4.8) k/uL Glucose 135 H (74-99) mg/dL Procalcitonin 0.13 H (0.02-0.09) ng/mL Microbiology - Last 24 Hours (Table) 02/22/22 22:40 Blood Culture - Preliminary Blood No Growth after 24 hours 02/22/22 22:58 Blood Culture - Preliminary Blood No Growth after 24 hours Assessment and Plan Plan: Acute exacerbation of chronic asthma, secondary shortness of breath chest tightness and wheeze. Blood gas shows acute respiratory alkalosis, clinically improving. Anion gap metabolic acidosis, probably related to a mild component of lactic aci dosis due to increased shortness of breath and increased work of breathing, recovered History of childhood bronchial asthma, likely nonallergic in nature COVID 19 infection May 2021 Sinus tachycardia Plan Continue current treatment of DuoNeb nebulized treatment [id number] The patient lives in [facility] and the patient was to get discharged home. His discharge is being contemplated by the primary care team, and I think this is possible, the patient needs to go with a nebulizer using DuoNeb about treatments around the clock and a prednisone burst taper starting with 40 mg every day at bedtime milligrams every 4 days. I will also put her on Symbicort maintenance 2 puffs twice, 160/4.5. Complete also course of Zithromax Outpatient workup for asthma phenotype/endotype in addition to morbid function tests We'll continue to follow, we'll see her outpatient basis
== END 2022-02-24 13:05 | disposition left against medical advice (07) | DRG 202 ==
LOC: EC 22:10 → 3SCARD 02-23 01:26
PROVIDERS: ADMIT Internal Medicine; ATTEND Internal Medicine
DX: J45.901 Unspecified asthma with (acute) exacerbation (principal); E87.2 Acidosis; E87.3 Alkalosis; J06.9 Acute upper respiratory infection, unspecified; R09.02 Hypoxemia; Z20.822 Contact with and (suspected) exposure to COVID-19; R00.0 Tachycardia, unspecified; J20.9 Acute bronchitis, unspecified; Z77.22 Contact with and (suspected) exposure to environmental tobacco smoke (acute) (chronic); Z77.9 Other contact with and (suspected) exposures hazardous to health; Z53.29 Procedure and treatment not carried out because of patient's decision for other reasons; Z87.09 Personal history of other diseases of the respiratory system; Z86.16 Personal history of COVID-19; Z28.311 Partially vaccinated for COVID-19
CPT/HCPCS: 36415; 36600; 71045; 80048; 80053; 81001; 81025; 82805; 83605; 83735; 83880; 84145; 84484; 84703; 85025; 85379; 85610; 87040; 87502; 87635; 93005; 94640; 94760; 96361; 96365; 96375; 99291

== ENCOUNTER → 2023-01-31 | Outpatient (CLI) | payer BC, OTHER ==
--- NOTE | 2023-01-31 11:15 | US ---
EXAMINATION TYPE: US pelvic complete DATE OF EXAM: 01/31/2023 COMPARISON: NONE CLINICAL INDICATION: Female, 27 years old with history of O26.93 RELATED CONDITIONS, UNSPEC IFIED,; Patient states her LMP was last March, believes to be in late 3rd trimester. Feels movement , some intermittent bleeding over the months, patient has positive blood HCG in May TECHNIQUE: TA. Transabdominal sonographic images of the pelvis were acquired. TV not performed due to extensive, enlarged pathology would not be within TV scope to image Date of LMP: March 2022 EXAM MEASUREMENTS: Uterus: 16.1 x 17.1 x 10.9 cm Endometrial Stripe: undiscernible Right Ovary: 9.2 x 7.2 x 7.2 cm Left Ovary: 3.4 x 2.5 x 2.4 cm 1. Uterus: Anteverted Heterogeneous and grossly enlarged, possible innumerable fibroids, versus le roseann of unknown etiology 2. Endometrium: undiscernible 3. Right Ovary: enlarged, complex cystic lesion 4. Left Ovary: wnl 5. Bilateral Adnexa: wnl 6. Posterior cul-de-sac: wnl IMPRESSION: 1. Markedly enlarged uterus with diffuse heterogeneity. Given previous positive beta hCG possibilitie s include choriocarcinoma or molar . Leiomyosarcoma is an additional possibility that cannot be excluded. OUTSIDE UPHOLSTERER consult is recommended.
== END | disposition home or self-care (01) ==
LOC: RADUSWWP 10:15
PROVIDERS: ATTEND Family Medicine
DX: O26.93 Pregnancy related conditions, unspecified, third trimester (principal); O46.93 Antepartum hemorrhage, unspecified, third trimester
CPT/HCPCS: 76856

== ENCOUNTER 2023-02-02 11:41 | Emergency (ER) | payer BC, OTHER ==
[2023-02-02 11:49] VITALS: RESP 18; TEMP 98
[2023-02-02 12:39] LABS: ALT 15 U/L (4-34); AST 23 U/L (14-36); African American GFR (CKD) >90 (>60 ml/min/1.73 sqM); Albumin 4.4 g/dL (3.5-5.0); Alkaline Phosphatase 59 U/L (38-126); Anion Gap 11 mmol/L; Blood Urea Nitrogen 10 mg/dL (7-17); Calcium 9.4 mg/dL (8.4-10.2); Carbon Dioxide 20 mmol/L (22-30); Chloride 108 mmol/L (98-107); Glucose 108 mg/dL (74-99); Non-African American GFR(CKD) >90 (>60 ml/min/1.73 sqM); Sodium 139 mmol/L (137-145); Total Bilirubin 0.5 mg/dL (0.2-1.3); Total Protein 7.8 g/dL (6.3-8.2)
[2023-02-02 12:40] LABS: Basophils % (A) 0 %; Eosinophils # (A) 0.2 k/uL (0-0.7); Eosinophils % (A) 4 %; HCT 41.5 % (34.0-46.0); Lymphocytes # (A) 2.2 k/uL (1.0-4.8); Lymphocytes % (A) 37 %; MCH 31.9 pg (25.0-35.0); MCHC 33.8 g/dL (31.0-37.0); MCV 94.4 fL (80.0-100.0); Mean Platelet Volume 9.7; Monocytes # (A) 0.2 k/uL (0-1.0); Monocytes % (A) 4 %; Neutrophils # (A) 3.2 k/uL (1.3-7.7); Neutrophils % (A) 54 %; Platelet Count 259 k/uL (150-450); RDW 12.5 % (11.5-15.5)
[2023-02-02] MEDS ORDERED: ACETAMINOPHEN TAB 500 MG TAB PO STA (12:51)
[2023-02-02 12:54] LABS: HCG,Quantitative Serum <2.4 mIU/mL
--- NOTE | 2023-02-02 14:20 | ED ---
General Adult HPI - General Chief complaint: Recheck/Abnormal Lab/Rx Stated complaint: Abn ultrasound Time Seen by Provider: 02/02/23 11:53 Source: patient Mode of arrival: ambulatory Limitations: no limitations - History of Present Illness Initial comments: Patient is a 27 -year-old female who presents to the emergency Department for abnormal ultrasound. Patient was told she could possibly have a molar . Patient believes she is around 9 months . States her last menstrual period was in March and she had a positive test in May. 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 She has never had an ultrasound until recently on January 31 ordered by her primary care provider . She reports mild to moderate intermittent pain in her right abdomen which radiates to the back. It usually hurts worse at night. She has had 2 episodes of vaginal bleeding, the last being in December, d uring which patient reports soaking several tampons. She denies any current vaginal bleeding. Denies fever, chills, nausea, vomiting. No urinary symptoms. This is patient's first . - Related Data Home Medications Medication Instructions Recorded Confirmed Albuterol Sulfate [Ventolin HFA] 2 puff INHALATION RT-Q6H PRN 02/02/23 02/02/23 Allergies Allergy/AdvReac Type Severity Reaction Status Date / Time lactose AdvReac Diarrhea Verified 02/02/23 12:42 Review of Systems ROS Statement: Those systems with pertinent positive or pertinent negative responses have been documented in the HPI. ROS Other: All systems not noted in ROS Statement are negative. Past Medical History Past Medical History: Asthma Additional Past Medical History / Comment(s): Childhood asthma. Previous adm ission for asthma [facility]. Mar 2021, [place], [place]. COVID May 2021, partially vaccinated (moderna x1). 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 Past Psychological History: No Psychological Hx Reported Smoking Status: Never smoker Past Alcohol Use History: None Reported Past Drug Use History: None Reported General Exam Limitations: no limitations General appearance: alert Eye exam: Present: normal appearance, PERRL, EOMI. Absent: scleral icterus, conjunctival injection, periorbital swelling Respiratory exam: Present: normal lung sounds bilaterally. Absent: respiratory distress, wheezes, rales, rhonchi, stridor Cardiovascular Exam: Present: regular rate, normal rhythm, normal heart sounds. Absent: systolic murmur, diastolic murmur, rubs, gallop, clicks GI/Abdominal exam: Present: soft, distended (mild), normal bowel sounds. Absent: tenderness, guarding, rebound, rigid Course Vital Signs 02/02/23 02/02/23 11:47 14:23 Temperature 98 F Pulse Rate 94 78 Respiratory 18 Rate Blood Pressure 134/93 121/79 O2 Sat by Pulse 98 Oximetry Medical Decision Making - Medical Decision Making Was pt. sent in by a medical professional or institution (, PA, OIL FURNACE INSTALLER, urgent care, hospital, or correction...) When possible be specific @ -No Did you speak to anyone other than the patient for history (EMS, parent, family, police, friend...)? What history was obtained from this source @ -No Did you review nursing and triage notes (agree or disagree)? Why? @ -I reviewed and agree with nursing and triage notes Were old charts reviewed (outside hosp., previous admission, EMS record, old EKG, old radiological studies, urgent care reports/EKG's, correction records)? Report findings @ Review ultrasound 01/14 showing a markedly enlarged uterus with diffuse heterogeneity possibilities include choriocarcinoma, molar , leiomyosarcoma. Differential Diagnosis (chest pain, altered mental status, abdominal pain women, abdominal pain men, vaginal bleeding, weakness, fever, dyspnea, syncope, headache, dizziness, GI bleed, back pain, seizure, CVA, palpatations, mental health)? @ -Differential Abdominal Pain Women: Appendicitis, Cholecystitis, diverticulosis, ischemic bowel, pancreatitis, hepatitis, UTI, gastroenteritis, AAA, incarcerated hernia, bowel obstruction, constipation, inflammatory bowel, hepatitis, peptic ulcer disease, splenic infa rction, perforated viscus, vulvitis, ovarian torsion, PID, kidney stone, placenta abruption, this is not meant to be an all-inclusive list EKG interpreted by me (3pts min.). @ -As above X-rays interpreted by me (1pt min.). @ -None done CT interpreted by me (1pt min.). @ -None done U/S interpreted by me (1pt. min.). @ -None done What testing was considered but not performed or refused? (CT, X-rays, U/S, labs)? Why? @ -None What meds were considered but not given or refused? Why? @ -None Did you discuss the management of the patient with other professionals (professionals i.e. , PA, OIL FURNACE INSTALLER, lab, RT, psych nurse, clinical social work therapist, manager voice, teacher, vessel traffic officer, assistant case manager)? Give summary @ -No Was smoking cessation discussed for >3mins.? @ -No Was critical care preformed (if so, how long)? @ -No Were there social determinants of health that impacted care today? How? (Homelessness, low income, unemployed, alcoholism, drug addiction, transportation, low edu. Level, literacy, decrease access to med. care, half-way, rehab)? @ -No Was there de-escalation of care discussed even if they declined (Discuss DNR or withdrawal of care, Hospice)? DNR status @ -No What co-morbidities impacted this encounter? (DM, HTN, Smoking, COPD, CAD, Cancer, CVA, ARF, Chemo, Hep., AIDS, mental health diagnosis, sleep apnea, morbid obesity)? @ -None Was patient admitted / discharged? Hospital course, mention meds given and route, prescriptions, significant lab abnormalities, going to OR and other pertinent info. @ -[Patient presenting with concern for molar . Reviewed ultrasound which showed a markedly enlarged uterus with diffuse heterogeneity. Serum hCG is negative today. Patient does have mild abdominal distention suspect related to uterus enlargement. She was given pain medication with improvement. Discussed case with Dr. Encinas. Patient is not . Etiology of symptoms is unclear. Patient is stable for discharge and will follow-up in his office. Discussed plan and return parameters with patient Undiagnosed new problem with uncertain prognosis? @ -No Drug Therapy requiring intensive monitoring for toxicity (Heparin, Nitro, Insulin, Cardizem)? @ -No Were any procedures done? @ -No Diagnosis/symptom? @ -abdominal pain Acute, or Chronic, or Acute on Chronic? @ -acute Uncomplicated (without systemic symptoms) or Complicated (systemic symptoms)? @ -uncomplicated Side effects of treatment? @ -No Exacerbation, Progression, or Severe Exacerbation? @ -No Poses a threat to life or bodily function? How? (Chest pain, USA, NM, pneumonia, PE, COPD, DKA, ARF, appy, cholecystitis, CVA, Diverticulitis, Homicidal, Suicidal, threat to staff... and all critical care pts) @ -No Dr. Lakhani is my attending - Lab Data Result diagrams: 02/02/23 12:00 02/02/23 12:00 Lab Results 02/02/23 02/02/23 02/02/23 Range/Units 12:00 12:00 12:00 WBC 6.0 (3.8-10.6) k/uL RBC 4.40 (3.80-5.40) m/uL Hgb 14.0 (11.4-16.0) gm/dL Hct 41.5 (34.0-46.0) % MCV 94.4 (80.0-100.0) fL MCH 31.9 (25.0-35.0) pg MCHC 33.8 (31.0-37.0) g/dL RDW 12.5 (11.5-15.5) % Plt Count 259 (150-450) k/uL MPV 9.7 Neutrophils % 54 % Lymphocytes % 37 % Monocytes % 4 % Eosinophils % 4 % Basophils % 0 % Neutrophils # 3.2 (1.3-7.7) k/uL Lymphocytes # 2.2 (1.0-4.8) k/uL Monocytes # 0.2 (0-1.0) k/uL Eosinophils # 0.2 (0-0.7) k/uL Basophils # 0.0 (0-0.2) k/uL Sodium 139 (137-145) mmol/L Potassium 4.0 (3.5-5.1) mmol/L Chloride 108 H (98-107) mmol/L Carbon Dioxide 20 L (22-30) mmol/L Anion Gap 11 mmol/L BUN 10 (7-17) mg/dL Creatinine 0.61 (0.52-1.04) mg/dL Est GFR (CKD-EPI)AfAm >90 (>60 ml/min/1.73 sqM) Est GFR (CKD-EPI)NonAf >90 (>60 ml/min/1.73 sqM) Glucose 108 H (74-99) mg/dL Calcium 9.4 (8.4-10.2) mg/dL Total Bilirubin 0.5 (0.2-1.3) mg/dL AST 23 (14-36) U/L ALT 15 (4-34) U/L Alkaline Phosphatase 59 (38-126) U/L Total Protein 7.8 (6.3-8.2) g/dL Albumin 4.4 (3.5-5.0) g/dL TSH 0.319 L (0.465-4.680) mIU/L Free T4 1.03 (0.78-2.19) ng/dL HCG, Quant <2.4 mIU/mL Blood Type Blood Type Confirm B Positive Blood Type Recheck Bld Type Recheck Status Antibody Screen Spec Expiration Date 02/02/23 Range/Units 12:10 WBC (3.8-10.6) k/uL RBC (3.80-5.40) m/uL Hgb (11.4-16.0) gm/dL Hct (34.0-46.0) % MCV (80.0-100.0) fL MCH (25.0-35.0) pg MCHC (31.0-37.0) g/dL RDW (11.5-15.5) % Plt Count (150-450) k/uL MPV Neutrophils % % Lymphocytes % % Monocytes % % Eosinophils % % Basophils % % Neutrophils # (1.3-7.7) k/uL Lymphocytes # (1.0-4.8) k/uL Monocytes # (0-1.0) k/uL Eosinophils # (0-0.7) k/uL Basophils # (0-0.2) k/uL Sodium (137-145) mmol/L Potassium (3.5-5.1) mmol/L Chloride (98-107) mmol/L Carbon Dioxide (22-30) mmol/L Anion Gap mmol/L BUN (7-17) mg/dL Creatinine (0.52-1.04) mg/dL Est GFR (CKD-EPI)AfAm (>60 ml/min/1.73 sqM) Est GFR (CKD-EPI)NonAf (>60 ml/min/1.73 sqM) Glucose (74-99) mg/dL Calcium (8.4-10.2) mg/dL Total Bilirubin (0.2-1.3) mg/dL AST (14-36) U/L ALT (4-34) U/L Alkaline Phosphatase (38-126) U/L Total Protein (6.3-8.2) g/dL Albumin (3.5-5.0) g/dL TSH (0.465-4.680) mIU/L Free T4 (0.78-2.19) ng/dL HCG, Quant mIU/mL Blood Type B Positive Blood Type Confirm Blood Type Recheck No Previous Record Bld Type Recheck Status CABO Indicated Antibody Screen NEGATIVE Spec Expiration Date 02/05/20232299 Disposition Clinical Impression: Abdominal pain, Enlarged uterus Disposition: HOME SELF-CARE Condition: Good Instructions (If sedation given, give patient instructions): Abdominal Pain (ED) Additional Instructions: Follow-up with Dr. Encinas in one to 2 days. Return to the emergency department if you experience new, concerning, or worsening symptoms Is patient prescribed a controlled substance at d/c from ED?: No Referrals: Jessi Ureña MD [Primary Care Provider] - 1-2 days Gareth Encinas MD [STAFF PHYSICIAN] - 1-2 days
[2023-02-02 14:29] VITALS: BP 121/79; PULSE 78
[2023-02-02 14:50] LABS: T4, Free (Free Thyroxine) 1.03 ng/dL (0.78-2.19)
== END 2023-02-02 14:28 | disposition home or self-care (01) ==
LOC: EC 11:41
DX: O99.893 Other specified diseases and conditions complicating puerperium (principal); N85.2 Hypertrophy of uterus; O99.513 Diseases of the respiratory system complicating pregnancy, third trimester; J45.909 Unspecified asthma, uncomplicated; Z86.16 Personal history of COVID-19; Z79.899 Other long term (current) drug therapy; Z3A.00 Weeks of gestation of pregnancy not specified
CPT/HCPCS: 36415; 80053; 84439; 84443; 84702; 85025; 86850; 86900; 86901; 99284

== ENCOUNTER 2023-02-20 17:51 | Emergency (ER) | payer BC, OTHER ==
[2023-02-20 18:30] VITALS: TEMP 98.6
[2023-02-20] MEDS ORDERED: IPRATROPIUM-ALBUTEROL 3 ML NEB INHALATION STA ×2 (18:33→22:22)
--- NOTE | 2023-02-20 19:27 | XR ---
02/22/2022EXAMINATION TYPE: XR chest 2V DATE OF EXAM: 02/20/2023 6:53 PM CLINICAL INDICATION:Female, 27 years old with history of difficulty breathing; H COMPARISON: Chest radiographs from TECHNIQUE: XR chest 2V Frontal and lateral views of the chest. FINDINGS: Lungs/Pleura: There is no evidence of pleural effusion, focal consolidation, or pneumothorax. Pulmonary vascularity: Unremarkable. Heart/mediastinum: Cardiomediastinal silhouette is unremarkable. Musculoskeletal: No acute osseous pathology. IMPRESSION: No acute cardiopulmonary disease process.
[2023-02-20] MEDS ORDERED: methylPREDNISolone SOD SUCCI 125 MG/2 ML VIAL IM ONE (19:51)
[2023-02-20 21:55] LABS: Basophils # (A) 0.1 k/uL (0-0.2); Basophils % (A) 0 %; Eosinophils # (A) 0.2 k/uL (0-0.7); Eosinophils % (A) 2 %; HCT 47.6 % (34.0-46.0); HGB 15.7 gm/dL (11.4-16.0); Lymphocytes # (A) 2.1 k/uL (1.0-4.8); Lymphocytes % (A) 18 %; MCH 31.3 pg (25.0-35.0); MCV 94.8 fL (80.0-100.0); Monocytes # (A) 0.4 k/uL (0-1.0); Monocytes % (A) 4 %; Neutrophils # (A) 8.6 k/uL (1.3-7.7); Neutrophils % (A) 75 %; Platelet Count 287 k/uL (150-450); RBC 5.02 m/uL (3.80-5.40); RDW 12.4 % (11.5-15.5); WBC 11.5 k/uL (3.8-10.6)
[2023-02-20 22:00] LABS: ALT 18 U/L (4-34); AST 28 U/L (14-36); African American GFR (CKD) >90 (>60 ml/min/1.73 sqM); Albumin 5.3 g/dL (3.5-5.0); Alkaline Phosphatase 94 U/L (38-126); Anion Gap 17 mmol/L; Blood Urea Nitrogen 8 mg/dL (7-17); Calcium 10.5 mg/dL (8.4-10.2); Carbon Dioxide 20 mmol/L (22-30); Chloride 102 mmol/L (98-107); Glucose 98 mg/dL (74-99); Non-African American GFR(CKD) >90 (>60 ml/min/1.73 sqM); Potassium 3.8 mmol/L (3.5-5.1); Sodium 139 mmol/L (137-145); Total Bilirubin 0.8 mg/dL (0.2-1.3); Total Protein 9.5 g/dL (6.3-8.2)
--- NOTE | 2023-02-20 22:25 | ED ---
General Adult HPI - General Chief complaint: Shortness of Breath Stated complaint: Asthma Attack Time Seen by Provider: 02/20/23 18:32 Source: patient Mode of arrival: wheelchair Limitations: no limitations - History of Present Illness Initial comments: 27-year-old female presenting to the ED with a chief complaint of dyspnea. She states over the past 2 or 3 days has started to develop some runny nose and cough. Patient states that this has exacerbated her asthma and notes that she has been increasingly short of breath due to this. States that she has been using her albuterol and nebulizer at home with no relief. Denies chest pain. No other complaints. - Related Data Home Medications Medication Instructions Recorded Confirmed Albuterol Sulfate [Ventolin HFA] 2 puff INHALATION RT-Q6H PRN 02/02/23 02/02/23 Previous Rx's Medication Instructions Recorded methylPREDNISolone Dose Pack 4 mg PO DIRECTED #1 packet 02/20/23 [Medrol Dose Pack] Allergies Allergy/AdvReac Type Severity Reaction Status Date / Time lactose AdvReac Diarrhea Verified 02/02/23 12:42 Review of Systems ROS Statement: Those systems with pertinent positive or pertinent negative responses have been documented in the HPI. ROS Other: All systems not noted in ROS Statement are negative. Past Medical History Past Medical History: Asthma Additional Past Medical History / Comment(s): Childhood asthma. Previous admission for asthma [facility]. Mar 2021, [place], [place]. COVID May 2021, partially vaccinated (moderna x1). 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 Past Psychological History: No Psychological Hx Reported Smoking Status: Never smoker Past Alcohol Use History: None Reported Past Drug Use History: None Reported General Exam Limitations: no limitations General appearance: alert, in no apparent distress Neck exam: Present: normal inspection Respiratory exam: Present: respiratory distress, wheezes Cardiovascular Exam: Present: regular rate, normal rhythm GI/Abdominal exam: Present: soft Neurological exam: Present: alert, oriented X3 Course Vital Signs 02/20/23 02/20/23 02/20/23 18:26 19:54 20:10 Temperature 98.6 F Pulse Rate 127 H 117 H 126 H Respiratory 24 Rate Blood Pressure 128/77 O2 Sat by Pulse 94 L Oximetry Medical Decision Making - Medical Decision Making Was pt. sent in by a medical professional or institution (DHIRAJ Wakefield, NURSING OFFICER, urgent care, hospital, or halfway...) When possible be specific @ -No Did you speak to anyone other than the patient for history (EMS, parent, family, police, friend...)? What history was obtained from this source @ -No Did you review nursing and triage notes (agree or disagree)? Why? @ -I reviewed and agree with nursing and triage notes Were old charts reviewed (outside hosp., previous admission, EMS record, old EKG, old radiological studies, urgent care reports/EKG's, halfway records)? Report findings @ -No old charts were reviewed Differential Diagnosis (chest pain, altered mental status, abdominal pain women, abdominal pain men, vaginal bleeding, weakness, fever, dyspnea, syncope, headache, dizziness, GI bleed, back pain, seizure, CVA, palpatations, mental health, musculoskeletal)? @ -Differential Dyspnea: Coronary syndrome, arrhythmia, tamponade, asthma, COPD, pulmonary embolism, pneumonia, pneumothorax, pulmonary effusion, anaphylaxis, diabetic ketoacidosis, flailed chest, pulmonary contusion, diaphragmatic rupture, anemia, neuromuscular, this is not meant to be an all-inclusive list. EKG interpreted by me (3pts min.). @ -None X-rays interpreted by me (1pt min.). @ -Chest x-ray interpreted by me shows no acute findings. CT interpreted by me (1pt min.). @ -None done U/S interpreted by me (1pt. min.). @ -None done What testing was considered but not performed or refused? (CT, X-rays, U/S, labs)? Why? @ -None What meds were considered but not given or refused? Why? @ -None Did you discuss the management of the patient with other professionals (professionals i.e. DHIRAJ Wakefield, NURSING OFFICER, lab, RT, psych nurse, social contact worker, hop separator, teacher, juvenile probation officer, case worker)? Give summary @ -No Was smoking cessation discussed for >3mins.? @ -No Was critical care preformed (if so, how long)? @ -No Were there social determinants of health that impacted care today? How? (Homelessness, low income, unemployed, alcoholism, drug addiction, transportation, low edu. Level, literacy, decrease access to med. care, long term, rehab)? @ -No Was there de-escalation of care discussed even if they declined (Discuss DNR or withdrawal of care, Hospice)? DNR status @ -No What co-morbidities impacted this encounter? (DM, HTN, Smoking, COPD, CAD, Can cer, CVA, ARF, Chemo, Hep., AIDS, mental health diagnosis, sleep apnea, morbid obesity)? @ -Asthma Was patient admitted / discharged? Hospital course, mention meds given and route, prescriptions, significant lab abnormalities, going to OR and other pertinent info. @ -Discharge 27-year-old female past medical history significant for asthma presenting to the ED with 2-3 days of URI symptoms and asthma exacerbation. Laboratory studies including d-dimer and troponin largely unremarkable. Chest x-ray shows no evidence of acute process. Patient had improvement of respiratory distress and wheezing with breathing treatment here. Patient provided steroids and discharged home with Medrol Dosepak. Discharged home in stable condition. Di scussed return precautions with patient who verbalizes agreement. Undiagnosed new problem with uncertain prognosis? @ -No Drug Therapy requiring intensive monitoring for toxicity (Heparin, Nitro, Insulin, Cardizem)? @ -No Were any procedures done? @ -No Diagnosis/symptom? @ -URI, asthma exacerbation Acute, or Chronic, or Acute on Chronic? @ -Acute Uncomplicated (without systemic symptoms) or Complicated (systemic symptoms)? @ -Complicated Side effects of treatment? @ -Yes, tachycardia Exacerbation, Progression, or Severe Exacerbation? @ -Exacerbation Poses a threat to life or bodily function? How? (Chest pain, [place], [place], pneumonia, PE, COPD, DKA, ARF, appy, cholecystitis, CVA, Diverticulitis, Homicidal, Suicidal, threat to staff... and all critical care pts) @ -No - Lab Data Result diagrams: 02/20/23 21:15 02/20/23 21:15 Lab Results 02/20/23 02/20/23 02/20/23 Range/Units 18:36 21:15 21:15 WBC (3.8-10.6) k/uL RBC (3.80-5.40) m/uL Hgb (11.4-16.0) gm/dL Hct (34.0-46.0) % MCV (80.0-100.0) fL MCH (25.0-35.0) pg MCHC (31.0-37.0) g/dL RDW (11.5-15.5) % Plt Count (150-450) k/uL MPV Neutrophils % % Lymphocytes % % Monocytes % % Eosinophils % % Basophils % % Neutrophils # (1.3-7.7) k/uL Lymphocytes # (1.0-4.8) k/uL Monocytes # (0-1.0) k/uL Eosinophils # (0-0.7) k/uL Basophils # (0-0.2) k/uL D-Dimer 0.45 (<0.60) mg/L FEU Sodium (137-145) mmol/L Potassium (3.5-5.1) mmol/L Chloride (98-107) mmol/L Carbon Dioxide (22-30) mmol/L Anion Gap mmol/L BUN (7-17) mg/dL Creatinine (0.52-1.04) mg/dL Est GFR (CKD-EPI)AfAm (>60 ml/min/1.73 sqM) Est GFR (CKD-EPI)NonAf (>60 ml/min/1.73 sqM) Glucose (74-99) mg/dL Calcium (8.4-10.2) mg/dL Total Bilirubin (0.2-1.3) mg/dL AST (14-36) U/L ALT (4-34) U/L Alkaline Phosphatase (38-126) U/L Troponin I <0.012 (0.000-0.034) ng/mL Total Protein (6.3-8.2) g/dL Albumin (3.5-5.0) g/dL Influenza Type A (PCR) Not Detected (Not Detectd) Influenza Type B (PCR) Not Detected (Not Detectd) RSV (PCR) Not Detected (Not Detectd) SARS-CoV-2 (PCR) Not Detected (Not Detectd) 02/20/23 02/20/23 Range/Units 21:15 21:15 WBC 11.5 H (3.8-10.6) k/uL RBC 5.02 (3.80-5.40) m/uL Hgb 15.7 (11.4-16.0) gm/dL Hct 47.6 H (34.0-46.0) % MCV 94.8 (80.0-100.0) fL MCH 31.3 (25.0-35.0) pg MCHC 33.0 (31.0-37.0) g/dL RDW 12.4 (11.5-15.5) % Plt Count 287 (150-450) k/uL MPV 10.0 Neutrophils % 75 % Lymphocytes % 18 % Monocytes % 4 % Eosinophils % 2 % Basophils % 0 % Neutrophils # 8.6 H (1.3-7.7) k/uL Lymphocytes # 2.1 (1.0-4.8) k/uL Monocytes # 0.4 (0-1.0) k/uL Eosinophils # 0.2 (0-0.7) k/uL Basophils # 0.1 (0-0.2) k/uL D-Dimer (<0.60) mg/L FEU Sodium 139 (137-145) mmol/L Potassium 3.8 (3.5-5.1) mmol/L Chloride 102 (98-107) mmol/L Carbon Dioxide 20 L (22-30) mmol/L Anion Gap 17 mmol/L BUN 8 (7-17) mg/dL Creatinine 0.71 (0.52-1.04) mg/dL Est GFR (CKD-EPI)AfAm >90 (>60 ml/min/1.73 sqM) Est GFR (CKD-EPI)NonAf >90 (>60 ml/min/1.73 sqM) Glucose 98 (74-99) mg/dL Calcium 10.5 H (8.4-10.2) mg/dL Total Bilirubin 0.8 (0.2-1.3) mg/dL AST 28 (14-36) U/L ALT 18 (4-34) U/L Alkaline Phosphatase 94 (38-126) U/L Troponin I (0.000-0.034) ng/mL Total Protein 9.5 H (6.3-8.2) g/dL Albumin 5.3 H (3.5-5.0) g/dL Influenza Type A (PCR) (Not Detectd) Influenza Type B (PCR) (Not Detectd) RSV (PCR) (Not Detectd) SARS-CoV-2 (PCR) (Not Detectd) Disposition Clinical Impression: URI (upper respiratory infection), Asthma exacerbation Disposition: HOME SELF-CARE Condition: Good Instructions (If sedation given, give patient instructions): Asthma (ED) Additional Instructions: Please return to the Emergency Department if symptoms worsen or any other concerns. Prescriptions: methylPREDNISolone Dose Pack [Medrol Dose Pack] 4 mg PO DIRECTED #1 packet Is patient prescribed a controlled substance at d/c from ED?: No Referrals: Jessi Ureña MD [Primary Care Provider] - 1-2 days Time of Disposition: 22:27
[2023-02-20 22:32] VITALS: BP 117/83; RESP 20
[2023-02-20 22:39] VITALS: PULSE 112
== END 2023-02-20 22:43 | disposition home or self-care (01) ==
LOC: EC 17:51
DX: J45.901 Unspecified asthma with (acute) exacerbation (principal); J06.9 Acute upper respiratory infection, unspecified; Z91.011 Allergy to milk products; Z86.16 Personal history of COVID-19; Z79.899 Other long term (current) drug therapy; Z20.822 Contact with and (suspected) exposure to COVID-19
CPT/HCPCS: 36415; 94640 ×2; 93005; 85379; 80053; 84484; 85025; 87636; 71046; 99285; 96372; J2930